=== PATIENT | female | born 1955 | race Caucasian/White ===

== ENCOUNTER 2016-11-22 11:17 | Emergency (ER) | payer MEDICAID ==
[~2016-11-22 11:17] MED LIST: ADVAIR 100-501 EACH IH; AMITRIPTYLINE H25 M1 PO; ASPIR 8181 M1 PO; GLUCOPHAGE1000 M1 PO; HEADACHE PAIN1 EACH PO; HUMALOG MI SC; HUMALOG100 UNITS/ SC; LAMICTAL200 M2 PO; LANTUS100 UNITS/ SC; PROAIR RESPICL90 MCG INH; SYMBICORT 160-1 PUFF INH; TRIAMCINOLONE A15 G2 TOP; [UNRECOGNIZED DRUG - REMARK] PO
[2016-11-22] MEDS ORDERED: TOPAMAX50 M3 PO (11:37)
[2016-11-22] MEDS ORDERED: AMBIEN5 M1 PO (11:38)
[2016-11-22] MEDS ORDERED: PRINIVIL10 M1 PO (11:39)
[2016-11-22] MEDS ORDERED: 24HOUR ALLERGY10 MG PO (11:39)
[2016-11-22] MEDS ORDERED: PROVENTIL HFA6.7 G1 INH (11:40)
[2016-11-22] MEDS ORDERED: SYMBICORT 160-1 PUFF INH (11:40)
[2016-11-22] MEDS ORDERED: TRULICITY1.5 MG/0.5 SC (11:44)
[2016-11-22] MEDS ORDERED: TRESIBA FL200 UNIT/1 SC (11:55)
[2016-11-22] MEDS ORDERED: TURMERIC500 M2 PO (12:02)
[2016-11-22] MEDS ORDERED: CALCIUM CARBON600 M2 PO (12:03)
[2016-11-22] MEDS ORDERED: VITAMIN D1000 UNI3 PO (12:05)
[2016-11-22] MEDS ORDERED: MULTIVITAMINS1 EAC6 PO (12:06)
[2016-11-22] MEDS ORDERED: PREDNISONE20 M1 PO (15:19)
[2016-11-22] MEDS ORDERED: EPIPEN 2-P0.3 MG/0.3 IM (15:19)
== END 2016-11-22 16:03 ==
LOC: EDMED 11:17
DX: T88.2XXA Shock due to anesthesia, initial encounter (principal); T41.3X5A Adverse effect of local anesthetics, initial encounter; E11.9 Type 2 diabetes mellitus without complications; J44.9 Chronic obstructive pulmonary disease, unspecified; J45.909 Unspecified asthma, uncomplicated; Z79.4 Long term (current) use of insulin; Z79.51 Long term (current) use of inhaled steroids; Z79.899 Other long term (current) drug therapy
CPT/HCPCS: J2930; J7030; J7512